=== PATIENT | male | born 1980 | race Caucasian/White ===

== ENCOUNTER 2016-12-09 07:48 | Emergency (ER) | payer BC ==
[~2016-12-09] VITALS: Ht 170.2 cm; Wt 97.5 kg
--- NOTE | 2016-12-09 09:18 | Diagnostic Imaging Report ---
Three views of the left knee. INDICATION: Left knee pain. FINDINGS: No fracture, dislocation or radiopaque foreign body. No suprapatellar effusion seen. The joint space appears unremarkable. IMPRESSION: Unremarkable exam. Dictated by: Dictated on workstation # [id number]
--- NOTE | 2016-12-09 09:28 | ED Lower Extremity ---
General Chief Complaint: Lower Extremity Stated Complaint: LEFT KNEE INJURY Nursing Triage Note: TO ROOM 06 WITH COMPLAINTS OF LEFT INNER KNEE PAIN AFTER BEING HIT BY A PERSON WHILE PLAYING SOFTBALL YESTERDAY EVENING. Nursing Sepsis Screen: No Definite Risk Source: patient Exam Limitations: no limitations History of Present Illness Time seen by provider: 08:45 Initial Comments Here with report of left knee pain after being run into while playing softball last night. He was able to continue playing but had knee pain. This morning and is much worse. He notices that the pain is on the medial aspect and there is a little bit of swelling. He is able to walk with a limp. Denies other injury. Denies previous injury to the knee. Onset: yesterday Severity: moderate Pain/Injury Location: left knee Method of Injury: direct blow, sports injury, twisted Modifying Factors: Improves With Immobilization, Improves With Rest Allergies and Home Medications Allergies Coded Allergies: No Known Drug Allergies (Unverified , 12/05/10) Home Medications No Active Prescriptions or Reported Meds Constitutional: see HPI, No chills, No fever Musculoskeletal: see HPI, joint pain, joint swelling Skin: no symptoms reported Psychiatric/Neurological: No Symptoms Reported Past Ufkihrs-Ewtfse-Mdnvic Hx Patient Social History Alcohol Use: Rarely Uses Recreational Drug Use: No Smoking Status: Never a Smoker Recent Foreign Travel: No Contact w/Someone Who Travel: No Recent Infectious Disease Expo: No Recent Hopitalizations: No Surgeries HX Surgeries: Yes (HERNIA REPAIR) Respiratory Hx Respiratory Disorders: No Cardiovascular Hx Cardiac Disorders: Yes (UNDIAGNOSED HYPERTENSION) Neurological Hx Neurological Disorders: No Reproductive System Hx Reproductive Disorders: No Sexually Transmitted Disease: No Genitourinary Hx Genitourinary Disorders: No Gastrointestinal Hx Gastrointestinal Disorders: No Musculoskeletal Hx Musculoskeletal Disorders: No Endocrine Hx Endocrine Disorders: Yes (WAS ON METFORMIN BUT NOT TAKING) Endocrine Disorders: Diabetes, Non-Insulin dep HEENT HX ENT Disorders: No Cancer Hx Cancer: No Psychosocial Hx Psychiatric Problems: No Integumentary HX Skin/Integumentary Disorder: No Blood Transfusions Hx Blood Disorders: No Reviewed Nursing Assessment Reviewed/Agree w Nursing PMH: Yes Family Medical History Significant Family History: No Pertinent Family Hx Physical Exam Vital Signs Vital Sign - Last 12Hours 12/09/16 08:20 Temp 98.0 Pulse 86 Resp 16 B/P (MAP) 157/106 Pulse Ox 98 Capillary Refill : Less Than 3 Seconds General Appearance: WD/WN, no apparent distress Knees: right knee non-tender, right knee normal inspection, bilateral knee normal range of motion, left knee soft tissue tenderness, left knee swelling, left knee other (findings to the medial anterior aspect of the left knee. Negative drawer and negative laxity on medial lateral movement. Does have mild pain medial aspect with medial pressure. Small amount of swelling to the left medial aspect.) Feet: bilateral foot non-tender, bilateral foot normal inspection, bilateral foot normal range of motion Neurologic/Tendon: normal sensation, normal motor functions Neurologic/Psychiatric: alert, oriented x 3 Skin: normal color, warm/dry Progress/Results/Core Measures Results/Orders My Orders Orders - MOMO SPENCER MD Knee, Left, 3 Views (12/09/16 08:54) Vital Signs/I&O Vital Sign - Last 12Hours 12/09/16 08:20 Temp 98.0 Pulse 86 Resp 16 B/P (MAP) 157/106 Pulse Ox 98 Blood Pressure Mean: 123 Progress Note : Progress Note Seen and evaluated. X-ray left knee. Declined pain medicine. X-ray negative. Discharged home with return precautions. Patient verbalize understanding instructions and agreement with plan. Diagnostic Imaging Diagonstic Imaging: Xray Plain Films/CT/US/NM/MRI: knee Comments [facility], [place] NAME: RANDYJAK Pamela [facility] REC#: [id number] PT STATUS: REG ER : 1980 PHYSICIAN: MOMO SPENCER MD ADMIT DATE: 12/09/16/ER Draft Date of Exam:12/09/16 KNEE, LEFT, 3 VIEWS Three views of the left knee. INDICATION: Left knee pain. FINDINGS: No fracture, dislocation or radiopaque foreign body. No suprapatellar effusion seen. The joint space appears unremarkable. IMPRESSION: Unremarkable exam. Dictated on workstation # [id number] Dict: 12/09/1608 Trans: 12/09/16 0917 HUMBERTO [id number] Interpreted by: CAL PATEL MD Electronically signed by: Departure Impression Impression: Primary Impression: Knee pain Qualified Codes: M25.562 - Pain in left knee Disposition: 01 HOME, SELF-CARE Condition: Improved Departure-Patient Inst. Decision time for Depature: 09:27 Referrals: MELYSSA VENEGAS MD NO,LOCAL PHYSICIAN (PCP) Primary Care Physician MATT RICHARDS MD, ROBERT F DO ZAFUTA, MICHAEL P MD Patient Instructions: Knee Sprain (DC) Add. Discharge Instructions: All discharge instructions reviewed with patient and/or family. Voiced understanding. You may take ibuprofen 800 mg every 8 hours as needed for pain. You may take Tylenol 1000 mg every 8 hours as needed for pain. Use ice pack to affected area 20 minutes per hour as needed. Follow-up with your Dr. in a few days for recheck. Return for worse pain, fever, vomiting, weakness, breathing problems or other concerns as needed. Use Dipak wrap as needed for comfort. Scripts No Active Prescriptions or Reported Meds MOMO SPENCER MD Dec 09, 2016 09:28
[2016-12-09 09:32] VITALS: BP 110/90
== END 2016-12-09 09:32 | disposition home or self-care (01) ==
LOC: EDUNIT# 07:48 → ER 07:50
DX: S80.02XA Contusion of left knee, initial encounter (principal); X50.9XXA Other and unspecified overexertion or strenuous movements or postures, initial encounter; Y92.320 Baseball field as the place of occurrence of the external cause; Y93.64 Activity, baseball; Y99.8 Other external cause status
CPT/HCPCS: 73562; 99282

== ENCOUNTER → 2017-11-26 | Outpatient (CLI) | payer BC, OTHER | LOC: LAB 06:30 | PROVIDERS: ATTEND Obstetrics & Gynecology | DX: N46.9 Male infertility, unspecified (principal) | CPT/HCPCS: 89320 ==

== ENCOUNTER → 2018-01-11 | Outpatient (CLI) | payer OTHER ==
[2018-01-11 07:41] LABS: SEMEN VOLUME 5.5 ML (1.5-5.0)
== END ==
LOC: LAB 07:05
PROVIDERS: ATTEND Obstetrics & Gynecology
DX: N46.9 Male infertility, unspecified (principal)
CPT/HCPCS: 89320

== ENCOUNTER → 2018-02-02 | Outpatient (CLI) | payer OTHER ==
--- NOTE | 2018-02-02 17:58 | Diagnostic Imaging Report ---
INDICATION: Left wrist pain. FINDINGS: Three views of the left wrist show no fracture, dislocation or other acute abnormalities. IMPRESSION: Negative left wrist. Dictated by: Dictated on workstation # [id number]
== END ==
LOC: RAD 11:39
PROVIDERS: ATTEND Family Medicine
DX: M25.532 Pain in left wrist (principal)
CPT/HCPCS: 73110

== ENCOUNTER → 2019-05-03 | Outpatient (CLI) | payer BC ==
--- NOTE | 2019-05-03 16:59 | Diagnostic Imaging Report ---
CLINICAL INDICATION: Patient playing dodgeball and went to corn picker a ball and fell over on the left side. Patient has left-sided rib pain. EXAM: Chest x-ray PA view only. Comparisons: None. Findings: Lungs/pleura: Lungs are clear. There is no pneumothorax. There is no pleural effusion. Mediastinum: Unremarkable. Pulmonary vasculature: Unremarkable. Heart: Unremarkable. Bones/extrathoracic soft tissue: There are degenerative spurs involving the thoracic spine. IMPRESSION: There is no radiographic evidence of acute cardiopulmonary process or traumatic finding. Dictated by: Dictated on workstation # [id number]
== END ==
LOC: RAD 15:05
PROVIDERS: ATTEND Family Medicine
DX: R07.81 Pleurodynia (principal); W21.00XA Struck by hit or thrown ball, unspecified type, initial encounter
CPT/HCPCS: 71045

== ENCOUNTER → 2021-04-22 | Outpatient (CLI) | payer BC ==
--- NOTE | 2021-04-22 10:09 | Diagnostic Imaging Report ---
EXAMINATION: Magnetic resonance imaging of the left shoulder without contrast. DATE: April 22, 2021. COMPARISON: None. HISTORY: 40-year-old male, left shoulder pain. TECHNIQUE: Magnetic Resonance Imaging sequences were performed of the shoulder without contrast. FINDINGS: ROTATOR CUFF, LIGAMENTS, TENDONS, AND MUSCLES: The supraspinatus, infraspinatus, teres minor, and subscapularis tendons and muscles are intact. There is normal rotator cuff muscle bulk and signal. LONG HEAD OF BICEPS: The biceps labral attachment and long head of the biceps tendon is intact. The long head of the biceps tendon is normally positioned within the bicipital groove. GLENOHUMERAL JOINT: The humeral head is well positioned relative to the glenoid. The labrum is grossly intact. There is no identified paralabral cyst. The articular cartilage is grossly intact. There is no joint effusion. ACROMIOCLAVICULAR JOINT: The acromioclavicular joint is normally aligned. The coracoclavicular and coracoacromial ligaments are intact. There are no degenerative changes of the acromioclavicular joint. BONE: The bones all have normal configuration. The bone marrow signal is within normal limits. Specifically, negative for fracture, osteomyelitis, osteonecrosis, or marrow replacing process. BURSAE AND SOFT TISSUES: The bursae and soft tissue surrounding the shoulder are unremarkable. IMPRESSION: Unremarkable MRI of the left shoulder. Dictated by: Dictated on workstation # [id number]
== END ==
LOC: RAD 08:45
PROVIDERS: ATTEND Family Medicine
DX: M25.512 Pain in left shoulder (principal)
CPT/HCPCS: 73221